=== PATIENT | female | born 1970 | race Caucasian/White ===

== ENCOUNTER 2019-03-14 07:54 | Inpatient (IN) | payer MEDICARE, MEDICAID ==
[~2019-03-14] VITALS: Ht 172.7 cm; Wt 64.9 kg
[~2019-03-14 07:54] MED LIST: ARIP10TA8 PO; FLUO-126 PO; FLUT16H NASAL; LEVE1000 PO
[2019-03-14] MEDS ORDERED: QUET100T PO (08:25)
[2019-03-14 08:49] LABS: BASOPHILS % (AUTO) 0.8 % (0.0-2.0); EOSINOPHILS % (AUTO) 1.9 % (1.0-6.0); HEMATOCRIT 40.2 % (36-46); HEMOGLOBIN 13.3 g/dL (12.0-16.0); LYMPHOCYTES # (AUTO) 0.9 K/uL (1.0-4.8); LYMPHOCYTES % (AUTO) 16.1 % (22.0-44.0); MEAN CORPUSCULAR HEMOGLOBIN 32.4 pg (26.0-34.0); MEAN CORPUSCULAR HGB CONC 33.1 G/dL (31.0-37.0); MEAN CORPUSCULAR VOLUME 98 fL (80-100); MONOCYTES # (AUTO) 0.6 K/uL (0.1-1.0); MONOCYTES % (AUTO) 9.6 % (2.0-9.0); NEUTROPHILS # (AUTO) 4.2 K/uL (1.8-7.7); NEUTROPHILS % (AUTO) 71.6 % (40.0-70.0); PLATELET COUNT (AUTO) 274 K/uL (150-450); RED BLOOD CELL COUNT(AUTO) 4.09 MIL/uL (4.00-5.20); RED CELL DISTRIBUTION WIDTH 13.5 % (11.5-14.5)
[2019-03-14 08:54] LABS: AMPHET/METH SCREEN,URINE NEGATIVE (NEGATIVE); BARBITURATE SCREEN, URINE NEGATIVE (NEGATIVE); BENZODIAZEPINES SCREEN,URINE NEGATIVE (NEGATIVE); CANNABINOID SCREEN,URINE POSITIVE (NEGATIVE); COCAINE SCREEN,URINE NEGATIVE (NEGATIVE); METHADONE SCREEN, URINE NEGATIVE (NEGATIVE); OPIATE SCREEN,URINE NEGATIVE (NEGATIVE)
[2019-03-14 08:55] LABS: PHENCYCLIDINE SCREEN,URINE NEGATIVE (NEGATIVE)
[2019-03-14 09:25] LABS: ANION GAP 10 mmol/L (8-16); CALCIUM, TOTAL 9.4 mg/dL (8.8-10.5); CARBON DIOXIDE 24 mmol/L (22-29); CHLORIDE 101 mmol/L (98-107); CREATININE 0.94 mg/dL (0.60-1.30); GLOMERULAR FILTR. RATE CALC > 60 mL/min (>60); GLUCOSE,RANDOM 105 mg/dL (70-110); POTASSIUM 3.6 mmol/L (3.5-5.1); SODIUM SERUM 135 mmol/L (136-145); UREA NITROGEN, BLOOD 8 mg/dL (7-18)
[2019-03-14 09:30] LABS: ALANINE AMINOTRANSFERASE 16 U/L (12-78); ALBUMIN 4.2 g/dL (3.4-5.0); ALKALINE PHOSPHATASE 54 U/L (46-116); ASPARTATE AMINOTRANSFERASE 15 U/L (15-37); BILIRUBIN,TOTAL 0.6 mg/dL (0.1-1.0); TOTAL PROTEIN, SERUM 8.1 g/dL (6.4-8.2)
[2019-03-14] MEDS ORDERED: ACETAMINOPHEN 325 MG TABLET PO PRN (10:00)
[2019-03-14] MEDS ORDERED: HALOPERIDOL 5 MG TABLET PO PRN (10:00)
[2019-03-14] MEDS ORDERED: ZOLPIDEM TARTRATE 10 MG TABLET PO PRN (10:00)
[2019-03-14] MEDS ORDERED: IBUPROFEN 400 MG TABLET PO PRN ×2 (10:00→13:45)
[2019-03-14 12:16] VITALS: BP 136/83
[2019-03-14] MEDS ORDERED: PNEUMOCOCCAL VACCINE POLYVALENT 0.5 ML VIAL [PPSV23] IM ONE (13:15)
[2019-03-14] MEDS ORDERED: ALBUTEROL SULFATE HFA 90 MCG/PUFF 8 GM INHALER IH PRN (13:45)
[2019-03-14] MEDS ORDERED: ONDANSETRON HCL 4 MG TABLET PO PRN (13:45)
[2019-03-14] MEDS ORDERED: MAG HYDROX/AL HYDROX/SIMETH ES 30 ML SUSPENSION UDCUP PO PRN (13:45)
[2019-03-14] MEDS ORDERED: PETROLATUM,WHITE 28 GM JELLY TP PRN (13:45)
[2019-03-14] MEDS ORDERED: LOPERAMIDE HCL 2 MG CAPSULE PO PRN (13:45)
[2019-03-14] MEDS ORDERED: NICOTINE 14 MG/24 HOUR PATCH TD PRN (13:45)
[2019-03-14] MEDS ORDERED: GuaiFENesin/D-METHORPHAN [SUGAR-FREE] 200-20MG/10 ML SYRUP UDCUP PO PRN (13:45)
[2019-03-14] MEDS ORDERED: DOCUSATE SODIUM 100 MG CAPSULE PO PRN (13:45)
[2019-03-14] MEDS ORDERED: CloNIDine HCL 0.1 MG TABLET PO PRN (13:45)
[2019-03-14] MEDS ORDERED: MAGNESIUM HYDROXIDE SUSPENSION 30 ML UDCUP PO PRN (13:45)
[2019-03-14 16:21] VITALS: BP 124/90
[2019-03-14] MEDS: LevETIRAcetam 500 MG TABLET PO SCH (16:36)
[2019-03-14] MEDS: FLUTICASONE PROPIONATE 50 MCG/SPRAY 16 GM NASAL SPRAY NASAL SCH (16:37)
[2019-03-14] MEDS: LORazepam 2 MG TABLET PO PRN (18:08)
[2019-03-15 04:48] VITALS: BP 128/80
[2019-03-15] MEDS: LORazepam 2 MG TABLET PO PRN (06:37)
[2019-03-15 08:07] VITALS: BP 105/72
[2019-03-15 08:23] LABS: BASOPHILS % (AUTO) 0.8 % (0.0-2.0); EOSINOPHILS % (AUTO) 5.1 % (1.0-6.0); HEMATOCRIT 43.2 % (36-46); HEMOGLOBIN 14.1 g/dL (12.0-16.0); LYMPHOCYTES # (AUTO) 1.4 K/uL (1.0-4.8); LYMPHOCYTES % (AUTO) 20.4 % (22.0-44.0); MEAN CORPUSCULAR HEMOGLOBIN 32.5 pg (26.0-34.0); MEAN CORPUSCULAR HGB CONC 32.8 G/dL (31.0-37.0); MEAN CORPUSCULAR VOLUME 99 fL (80-100); MONOCYTES # (AUTO) 0.7 K/uL (0.1-1.0); MONOCYTES % (AUTO) 9.7 % (2.0-9.0); NEUTROPHILS # (AUTO) 4.4 K/uL (1.8-7.7); PLATELET COUNT (AUTO) 297 K/uL (150-450); RED BLOOD CELL COUNT(AUTO) 4.35 MIL/uL (4.00-5.20); RED CELL DISTRIBUTION WIDTH 13.7 % (11.5-14.5)
[2019-03-15] MEDS: FLUTICASONE PROPIONATE 50 MCG/SPRAY 16 GM NASAL SPRAY NASAL SCH ×2 (08:51→16:32)
[2019-03-15] MEDS: LevETIRAcetam 500 MG TABLET PO SCH ×2 (08:51→16:32)
[2019-03-15 09:30] LABS: ALANINE AMINOTRANSFERASE 14 U/L (12-78); ALBUMIN 4.1 g/dL (3.4-5.0); ALKALINE PHOSPHATASE 56 U/L (46-116); ANION GAP 13 mmol/L (8-16); ASPARTATE AMINOTRANSFERASE 14 U/L (15-37); BILIRUBIN,TOTAL 0.5 mg/dL (0.1-1.0); CALCIUM, TOTAL 9.9 mg/dL (8.8-10.5); CARBON DIOXIDE 26 mmol/L (22-29); CHLORIDE 103 mmol/L (98-107); CHOL/HDL RATIO 2.2 (3.9-5.7); CHOLESTEROL 178 mg/dL (131-200); CREATININE 0.86 mg/dL (0.60-1.30); GLOMERULAR FILTR. RATE CALC > 60 mL/min (>60); GLUCOSE,RANDOM 90 mg/dL (70-110); HDL CHOLESTEROL 81 mg/dL (40-60); LDL CHOL (CALC.) 90 mg/dL (0-130); POTASSIUM 4.6 mmol/L (3.5-5.1); SODIUM SERUM 142 mmol/L (136-145); TOTAL PROTEIN, SERUM 7.9 g/dL (6.4-8.2); TRIGLYCERIDES 37 mg/dL (15-150); UREA NITROGEN, BLOOD 15 mg/dL (7-18)
[2019-03-15 09:58] LABS: HEMOGLOBIN A1C 5.2 % (4.5-6.2)
[2019-03-15] MEDS: FLUoxetine HCL 20 MG CAPSULE PO SCH (11:49)
[2019-03-15] MEDS ORDERED: LORazepam 1 MG TABLET PO PRN (14:00)
[2019-03-15 16:32] VITALS: BP 121/66
[2019-03-15] MEDS ORDERED: QUEtiapine FUMARATE 100 MG TABLET PO SCH (21:00)
[2019-03-16 00:41] VITALS: BP 117/75
[2019-03-16] MEDS: FLUoxetine HCL 20 MG CAPSULE PO SCH (08:43)
[2019-03-16] MEDS: LevETIRAcetam 500 MG TABLET PO SCH ×2 (08:43→16:03)
[2019-03-16] MEDS: FLUTICASONE PROPIONATE 50 MCG/SPRAY 16 GM NASAL SPRAY NASAL SCH ×2 (08:44→16:03)
[2019-03-16 08:51] VITALS: BP 116/70
[2019-03-16] MEDS: LORazepam 0.5 MG TABLET PO PRN ×2 (08:53→14:59)
[2019-03-16 16:03] VITALS: BP 111/74
[2019-03-16] MEDS: ACETAMINOPHEN 325 MG TABLET PO PRN (16:03)
[2019-03-16] MEDS ORDERED: QUEtiapine FUMARATE 100 MG TABLET PO SCH (21:00)
[2019-03-17 02:16] VITALS: BP 102/72
[2019-03-17] MEDS: LevETIRAcetam 500 MG TABLET PO SCH ×2 (08:04→16:02)
[2019-03-17] MEDS: FLUoxetine HCL 20 MG CAPSULE PO SCH (08:04)
[2019-03-17] MEDS: FLUTICASONE PROPIONATE 50 MCG/SPRAY 16 GM NASAL SPRAY NASAL SCH ×2 (08:05→16:02)
[2019-03-17 08:18] VITALS: BP 114/77
[2019-03-17] MEDS ORDERED: QUEtiapine FUMARATE 25 MG TABLET PO SCH (09:00)
[2019-03-17] MEDS: LORazepam 0.5 MG TABLET PO PRN (16:02)
[2019-03-17 16:06] VITALS: BP 122/78
[2019-03-17] MEDS: QUEtiapine FUMARATE 200 MG TABLET PO SCH (20:15)
[2019-03-18 00:23] VITALS: BP 107/62
[2019-03-18 08:20] VITALS: BP 114/75
[2019-03-18] MEDS: FLUTICASONE PROPIONATE 50 MCG/SPRAY 16 GM NASAL SPRAY NASAL SCH ×2 (08:20→16:39)
[2019-03-18] MEDS: LORazepam 0.5 MG TABLET PO PRN ×2 (08:21→18:24)
[2019-03-18] MEDS: LevETIRAcetam 500 MG TABLET PO SCH ×2 (08:21→16:39)
[2019-03-18] MEDS: FLUoxetine HCL 20 MG CAPSULE PO SCH (08:21)
[2019-03-18] MEDS: QUEtiapine FUMARATE 100 MG TABLET PO SCH (08:21)
[2019-03-18 16:25] VITALS: BP 120/80
[2019-03-18] MEDS: QUEtiapine FUMARATE 200 MG TABLET PO SCH (20:55)
[2019-03-19 00:18] VITALS: BP 118/70
[2019-03-19] MEDS: LevETIRAcetam 500 MG TABLET PO SCH ×2 (08:12→16:32)
[2019-03-19] MEDS: QUEtiapine FUMARATE 100 MG TABLET PO SCH (08:12)
[2019-03-19] MEDS: FLUoxetine HCL 20 MG CAPSULE PO SCH (08:12)
[2019-03-19] MEDS: FLUTICASONE PROPIONATE 50 MCG/SPRAY 16 GM NASAL SPRAY NASAL SCH ×2 (08:13→16:32)
[2019-03-19 08:15] VITALS: BP 119/80
[2019-03-19 16:10] VITALS: BP 114/87
[2019-03-19] MEDS: LORazepam 0.5 MG TABLET PO PRN (16:54)
[2019-03-19] MEDS ORDERED: QUEtiapine FUMARATE 200 MG TABLET PO SCH (21:00)
[2019-03-20 05:44] VITALS: BP 121/73
[2019-03-20] MEDS: LevETIRAcetam 500 MG TABLET PO SCH ×2 (08:20→16:31)
[2019-03-20] MEDS: FLUoxetine HCL 20 MG CAPSULE PO SCH (08:20)
[2019-03-20] MEDS: FLUTICASONE PROPIONATE 50 MCG/SPRAY 16 GM NASAL SPRAY NASAL SCH ×2 (08:21→16:31)
[2019-03-20 08:52] VITALS: BP 102/74
[2019-03-20] MEDS ORDERED: QUEtiapine FUMARATE 200 MG TABLET PO SCH (09:00)
[2019-03-20] MEDS: LORazepam 0.5 MG TABLET PO PRN (14:40)
[2019-03-20 16:17] VITALS: BP 118/69
[2019-03-20] MEDS: QUEtiapine FUMARATE 200 MG TABLET PO SCH (20:33)
[2019-03-21 05:43] VITALS: BP 122/79
[2019-03-21 08:12] VITALS: BP 106/67
[2019-03-21] MEDS: FLUoxetine HCL 20 MG CAPSULE PO SCH (08:24)
[2019-03-21] MEDS: QUEtiapine FUMARATE 300 MG TABLET PO SCH (08:24)
[2019-03-21] MEDS: LevETIRAcetam 500 MG TABLET PO SCH ×2 (08:24→16:33)
[2019-03-21] MEDS: FLUTICASONE PROPIONATE 50 MCG/SPRAY 16 GM NASAL SPRAY NASAL SCH ×2 (08:25→16:33)
[2019-03-21] MEDS: ACETAMINOPHEN 325 MG TABLET PO PRN (09:52)
[2019-03-21 16:00] VITALS: BP 107/67
[2019-03-21] MEDS: QUEtiapine FUMARATE 200 MG TABLET PO SCH (20:35)
[2019-03-22 06:17] VITALS: BP 106/67
[2019-03-22] MEDS: FLUTICASONE PROPIONATE 50 MCG/SPRAY 16 GM NASAL SPRAY NASAL SCH ×2 (08:10→16:31)
[2019-03-22] MEDS: FLUoxetine HCL 20 MG CAPSULE PO SCH (08:10)
[2019-03-22] MEDS: QUEtiapine FUMARATE 300 MG TABLET PO SCH (08:10)
[2019-03-22] MEDS: LevETIRAcetam 500 MG TABLET PO SCH ×2 (08:10→16:31)
[2019-03-22 08:30] VITALS: BP 123/79
[2019-03-22] MEDS: LORazepam 0.5 MG TABLET PO PRN ×2 (11:11→16:40)
[2019-03-22 16:11] VITALS: BP 138/78
[2019-03-22] MEDS: DIVALPROEX SODIUM 500 MG ER TABLET PO SCH (16:35)
[2019-03-22] MEDS: QUEtiapine FUMARATE 200 MG TABLET PO SCH (20:16)
[2019-03-23 06:01] VITALS: BP 126/80
[2019-03-23] MEDS: FLUoxetine HCL 20 MG CAPSULE PO SCH (08:45)
[2019-03-23] MEDS: QUEtiapine FUMARATE 300 MG TABLET PO SCH (08:45)
[2019-03-23] MEDS: LevETIRAcetam 500 MG TABLET PO SCH ×2 (08:45→16:17)
[2019-03-23] MEDS: FLUTICASONE PROPIONATE 50 MCG/SPRAY 16 GM NASAL SPRAY NASAL SCH (08:46)
[2019-03-23 08:48] VITALS: BP 134/82
[2019-03-23] MEDS: DIVALPROEX SODIUM 500 MG ER TABLET PO SCH (08:51)
[2019-03-23] MEDS: ACETAMINOPHEN 325 MG TABLET PO PRN (09:27)
[2019-03-23] MEDS ORDERED: QUET300T2 PO (12:51)
[2019-03-23] MEDS ORDERED: QUET200T PO (12:51)
[2019-03-23] MEDS ORDERED: FLUO-191 PO (13:04)
== END 2019-03-23 16:20 | disposition home or self-care (01) | DRG 885 ==
LOC: EMS 07:57 → B2X 10:55
PROVIDERS: ADMIT Psychiatry & Neurology Psychiatry; ATTEND Psychiatry & Neurology Psychiatry
DX: F25.1 Schizoaffective disorder, depressive type (principal); F41.9 Anxiety disorder, unspecified; E03.9 Hypothyroidism, unspecified; G40.909 Epilepsy, unspecified, not intractable, without status epilepticus; G89.29 Other chronic pain; M79.672 Pain in left foot; F12.10 Cannabis abuse, uncomplicated; I10 Essential (primary) hypertension; K21.9 Gastro-esophageal reflux disease without esophagitis; Z71.51 Drug abuse counseling and surveillance of drug abuser; Z91.041 Radiographic dye allergy status; Z91.040 Latex allergy status; Z88.6 Allergy status to analgesic agent; Z79.899 Other long term (current) drug therapy; Z79.890 Hormone replacement therapy; Z91.14 Patient's other noncompliance with medication regimen; Z91.19 Patient's noncompliance with other medical treatment and regimen; Z91.5 Personal history of self-harm
CPT/HCPCS: 83036; 84439; 84443; 90732; G0480